=== PATIENT | male | born 1985 | race Caucasian/White ===

== ENCOUNTER → 2020-05-30 11:56 | Outpatient (BNVA) | payer BC, SELFPAY | PROVIDERS: PCP Nurse Practitioner Family; Visit Provider Nurse Practitioner Family | DX: R07.9 Chest pain, unspecified (principal); R00.2 Palpitations; J30.9 Allergic rhinitis, unspecified | CPT/HCPCS: 80053; 80061; 83735; 84443; 85025 ==

== ENCOUNTER → 2020-08-15 14:46 | Outpatient (BNVA) | payer BC, SELFPAY | PROVIDERS: PCP Nurse Practitioner Family; Visit Provider Nurse Practitioner Family | DX: Z11.59 Encounter for screening for other viral diseases (principal); Z20.828 Contact with and (suspected) exposure to other viral communicable diseases | CPT/HCPCS: 87635 ==

== ENCOUNTER → 2022-02-10 09:58 | Outpatient (BNVA) | payer BC, SELFPAY | PROVIDERS: PCP Nurse Practitioner Family; Visit Provider Nurse Practitioner Family | DX: M25.571 Pain in right ankle and joints of right foot (principal) | CPT/HCPCS: 73610 ==

== ENCOUNTER → 2022-08-27 13:12 | Outpatient (BNVA) | payer BC, SELFPAY | PROVIDERS: PCP Nurse Practitioner Family; Visit Provider Nurse Practitioner Family | DX: J01.00 Acute maxillary sinusitis, unspecified (principal); R00.2 Palpitations; R05.9 Cough, unspecified; J30.9 Allergic rhinitis, unspecified | CPT/HCPCS: 80053; 80061; 84443 ==

== ENCOUNTER 2023-04-28 08:09 | Outpatient (CLI) | payer BC, SELFPAY ==
--- NOTE | 2023-04-28 08:30 | US_ITS ---
WS: [id number] ULTRASOUND SOFT TISSUE NECK INDICATION: Enlarged lymph nodes TECHNIQUE: Ultrasound soft tissue area of concern FINDINGS: Ultrasound soft tissue LEFT neck area of concern. Tiny 8 mm lesion in the superficial subcu taneous soft tissues has a benign appearance. This may represent a tiny sebaceous cyst. No other susp icious findings. US/US soft tissue head neck [id number] IMPRESSION: Tiny 8 mm lesion in the superficial subcutaneous soft tissues has a benign appearance. This may represent a tiny sebaceous cyst. No other suspicio us findings.
== END 2023-04-28 08:10 | disposition home or self-care (01) ==
PROVIDERS: PCP Nurse Practitioner Family; Visit Provider Nurse Practitioner Family
DX: R59.0 Localized enlarged lymph nodes (principal)
CPT/HCPCS: 76536